=== PATIENT | female | born 1935 | race African-American/Black ===

== ENCOUNTER 2017-06-15 09:44 | Inpatient (IN) | payer MEDICAID, MEDICARE ==
[~2017-06-15] VITALS: Ht 144.8 cm; Wt 31.8 kg
[~2017-06-15 09:44] MED LIST: ALPR2TAB2 PO; ASPI-1159 PO; CEPH500T PO; SERT50TA PO; SILV20CR15 TP; SORB1SOL2 GT
[2017-06-15] MEDS ORDERED: SODIUM CHLORIDE 0.9% 1,000 ML IV ONE (09:47)
[2017-06-15 10:32] LABS: BASOPHILS % 0.6 % (0.0-2.0); EOSINOPHILS % 0.6 % (0.0-5.0); INR 1.2; LYMPHOCYTES % 17.1 % (20.0-50.0); MEAN CORPUSCULAR HEMOGLOBIN 25.5 pg (28.0-32.0); MEAN PLATELET VOLUME 6.2 fl (7.4-10.4); MONOCYTES % 5.3 % (2.0-8.0); NEUTROPHILS % 76.4 % (40.0-76.0); PLATELET 367 x1000/uL (130-400); PROTHROMBIN TIME 12.5 sec; RED BLOOD CELL COUNT 2.62 mill/uL (4.2-5.4)
[2017-06-15 10:44] LABS: CARBON DIOXIDE 27 mEq/L (21-32); CHLORIDE 108 mEq/L (98-107)
[2017-06-15 12:42] LABS: CLARITY URINE CLOUDY (CLEAR); COLOR URINE YELLOW (YELLOW); GLUCOSE URINE NEGATIVE (NEGATIVE); KETONES URINE NEGATIVE (NEGATIVE); LEUKOCYTE ESTERASE URINE TRACE (NEGATIVE); NITRITE URINE POSITIVE (NEGATIVE); OCCULT BLOOD URINE TRACE (NEGATIVE); PH URINE 5.5 (4.5-8.0); PROTEIN URINE NEGATIVE (NEGATIVE); SPECIFIC GRAVITY URINE 1.015 (1.005-1.030); UROBILINOGEN URINE 0.2 E.U./dL (0.2-1.0)
[2017-06-15] MEDS ORDERED: CEFTRIAXONE 1 G PREMIX 50 ML IV ONE (12:45)
[2017-06-15] MEDS ORDERED: ONDANSETRON HCL 4MG/2ML VIAL IV PRN (14:15)
[2017-06-15] MEDS ORDERED: LORAZEPAM 2MG/ML CPJ IV PRN (14:15)
[2017-06-15] MEDS ORDERED: ACETAMINOPHEN 650MG SUPP PR PRN (14:15)
[2017-06-15 16:45] VITALS: BP 128/68
[2017-06-15 16:52] VITALS: BP 128/68
[2017-06-15] MEDS: DEXT 5%/0.45% NACL 1000ML 1,000 ML IV SCH (17:21)
[2017-06-15] MEDS: LEVOFLOXACIN 250MG PREMIX 50 ML IV SCH (18:20)
[2017-06-15] MEDS ORDERED: LEVOFLOXACIN 500MG PREMIX 100 ML IV NR (18:30)
[2017-06-15 20:00] VITALS: BP 112/78
[2017-06-15] MEDS ORDERED: ALPRAZOLAM 0.25 MG TABLET PO NR (22:00)
[2017-06-15 22:30] VITALS: BP 130/69
[2017-06-15 22:53] VITALS: BP 122/69
[2017-06-15 23:53] VITALS: BP 118/74
[2017-06-16] VITALS (13 sets, daily range): BP systolic 118–144; BP diastolic 46–84
[2017-06-16 06:37] LABS: BASOPHILS % 0.2 % (0.0-2.0); EOSINOPHILS % 0.3 % (0.0-5.0); HEMATOCRIT. 27.6 % (36.0-48.0); LYMPHOCYTES % 12.5 % (20.0-50.0); MEAN CORPUSCULAR HEMOGLOBIN 27.3 pg (28.0-32.0); MEAN CORPUSCULAR VOLUME 81.6 fL (81.0-99.0); MEAN PLATELET VOLUME 6.5 fl (7.4-10.4); MONOCYTES % 7.6 % (2.0-8.0); NEUTROPHILS % 79.4 % (40.0-76.0); PLATELET 297 x1000/uL (130-400); RED BLOOD CELL COUNT 3.38 mill/uL (4.2-5.4); RED CELL DISTRIBUTION WIDTH 15.3 % (11.6-14.6)
[2017-06-16 07:10] LABS: CARBON DIOXIDE 22 mEq/L (21-32); CHLORIDE 110 mEq/L (98-107); HDL CHOLESTEROL 45 mg/dL (40-59); LDL CHOLESTEROL 43 mg/dL (5-100); TROPONIN I 0.16 ng/mL (0.00-0.04)
[2017-06-16 07:17] LABS: HEMOGLOBIN. 9.2 g/dL (12.0-16.0)
[2017-06-16] MEDS: DEXT 5%/0.45% NACL 1000ML 1,000 ML IV SCH (16:18)
[2017-06-16] MEDS: LEVOFLOXACIN 250MG PREMIX 50 ML IV SCH (16:19)
[2017-06-17 05:02] VITALS: BP 132/58
[2017-06-17] MEDS: ENOXAPARIN 30MG/0.3ML SYR SUBCUT SCH (05:07)
[2017-06-17 08:00] VITALS: BP 136/46
[2017-06-17] MEDS ORDERED: ENOXAPARIN 30MG/0.3ML SYR SUBCUT SCH (09:00)
[2017-06-17 10:11] LABS: HEMOGLOBIN. 6.7 g/dL (12.0-16.0)
[2017-06-17 12:00] VITALS: BP 114/37
[2017-06-17 13:27] LABS: BASOPHILS % 0.4 % (0.0-2.0); EOSINOPHILS % 0.4 % (0.0-5.0); HEMATOCRIT. 30.9 % (36.0-48.0); HEMOGLOBIN. 10.3 g/dL (12.0-16.0); LYMPHOCYTES % 13.5 % (20.0-50.0); MEAN CORPUSCULAR HEMOGLOBIN 27.3 pg (28.0-32.0); MEAN PLATELET VOLUME 6.2 fl (7.4-10.4); MONOCYTES % 6.1 % (2.0-8.0); NEUTROPHILS % 79.6 % (40.0-76.0); PLATELET 293 x1000/uL (130-400); RED BLOOD CELL COUNT 3.77 mill/uL (4.2-5.4); RED CELL DISTRIBUTION WIDTH 15.9 % (11.6-14.6)
[2017-06-17] MEDS: LEVOFLOXACIN 250MG PREMIX 50 ML IV SCH (13:42)
[2017-06-17] MEDS: LEVETIRACETAM 250 MG in SODIUM CHLORIDE 0.9% 100 ML IV SCH (14:46)
[2017-06-17 16:39] VITALS: BP 95/52
[2017-06-17 20:26] VITALS: BP 109/51
[2017-06-17] MEDS: ALPRAZOLAM 0.5 MG TABLET PO SCH (21:44)
[2017-06-17] MEDS: DEXT 5%/0.45% NACL 1000ML 1,000 ML IV SCH ×2 (21:44→21:52)
[2017-06-17 23:53] VITALS: BP 118/46
[2017-06-18] MEDS: LEVETIRACETAM 250 MG in SODIUM CHLORIDE 0.9% 100 ML IV SCH ×2 (03:24→15:10)
[2017-06-18 04:44] VITALS: BP 120/49
[2017-06-18] MEDS: ENOXAPARIN 30MG/0.3ML SYR SUBCUT SCH (05:22)
[2017-06-18 08:00] VITALS: BP 156/57
[2017-06-18 12:00] VITALS: BP 122/59
[2017-06-18] MEDS: LEVOFLOXACIN 250MG PREMIX 50 ML IV SCH (13:35)
[2017-06-18] MEDS: DEXT 5%/0.45% NACL 1000ML 1,000 ML IV SCH (13:35)
[2017-06-18 16:00] VITALS: BP 127/60
[2017-06-18 20:00] VITALS: BP 103/65
[2017-06-18] MEDS: ALPRAZOLAM 0.5 MG TABLET PO SCH (20:36)
[2017-06-19] VITALS: BP 134/62
[2017-06-19] MEDS: LEVETIRACETAM 250 MG in SODIUM CHLORIDE 0.9% 100 ML IV SCH ×2 (02:30→15:55)
[2017-06-19 04:00] VITALS: BP 131/81
[2017-06-19] MEDS: DEXT 5%/0.45% NACL 1000ML 1,000 ML IV SCH ×2 (04:12→18:25)
[2017-06-19 08:00] VITALS: BP 113/50
[2017-06-19] MEDS ORDERED: SODIUM BICARBONATE 4% (2.4MEQ) 5ML VIAL IV ONE (08:51)
[2017-06-19] MEDS ORDERED: IOHEXOL-300 100 ML BOTTLE ONE (08:51)
[2017-06-19] MEDS ORDERED: LIDOCAINE HCL 1% 20ML VIAL (Pyxis) INJ ONE (08:51)
[2017-06-19] MEDS ORDERED: HEPARIN 1,000 UNITS PREMIX 0 ML IV ONE (08:52)
[2017-06-19] MEDS: LORAZEPAM 2MG/ML CPJ IV PRN (09:16)
[2017-06-19 12:31] VITALS: BP 126/61
[2017-06-19] MEDS: LEVOFLOXACIN 250MG PREMIX 50 ML IV SCH (13:51)
[2017-06-19 16:11] VITALS: BP 104/59
[2017-06-19 20:00] VITALS: BP 128/52
[2017-06-19] MEDS: ALPRAZOLAM 0.5 MG TABLET PO SCH (23:06)
[2017-06-20] VITALS: BP 109/52
[2017-06-20] MEDS: LEVETIRACETAM 500 MG in SODIUM CHLORIDE 0.9% 100 ML IV SCH ×2 (02:48→15:02)
[2017-06-20] MEDS: DEXT 5%/0.45% NACL 1000ML 1,000 ML IV SCH ×2 (02:49→17:44)
[2017-06-20] MEDS: ENOXAPARIN 30MG/0.3ML SYR SUBCUT SCH (02:54)
[2017-06-20 04:00] VITALS: BP 114/54
[2017-06-20 08:00] VITALS: BP 109/63
[2017-06-20] MEDS ORDERED: ALPRAZOLAM 0.5 MG TABLET PO SCH (09:00)
[2017-06-20] MEDS: ALPRAZOLAM 0.5 MG TABLET PO SCH ×2 (09:19→17:45)
[2017-06-20 12:00] VITALS: BP 97/51
[2017-06-20] MEDS: LEVOFLOXACIN 250MG PREMIX 50 ML IV SCH (14:13)
[2017-06-20 14:42] VITALS: BP 97/51
[2017-06-20 20:00] VITALS: BP 115/78
[2017-06-21] MEDS: LEVETIRACETAM 500 MG in SODIUM CHLORIDE 0.9% 100 ML IV SCH (03:00)
[2017-06-21 04:00] VITALS: BP 120/68
[2017-06-21] MEDS: ENOXAPARIN 30MG/0.3ML SYR SUBCUT SCH (04:00)
[2017-06-21] MEDS: DEXT 5%/0.45% NACL 1000ML 1,000 ML IV SCH ×2 (05:20→18:40)
[2017-06-21 08:00] VITALS: BP 137/59
[2017-06-21] MEDS: LEVETIRACETAM 500MG TABLET PO SCH ×2 (09:56→20:51)
[2017-06-21] MEDS: ALPRAZOLAM 0.5 MG TABLET PO SCH ×2 (09:56→17:28)
[2017-06-21] MEDS: LEVOFLOXACIN 250MG TABLET PO SCH (10:00)
[2017-06-21 12:00] VITALS: BP 99/47
[2017-06-21 16:00] VITALS: BP 99/54
[2017-06-21 20:00] VITALS: BP 112/59
[2017-06-21] MEDS: LORAZEPAM 2MG/ML CPJ IV PRN (22:08)
[2017-06-22] VITALS (7 sets, daily range): BP systolic 104–129; BP diastolic 56–86
[2017-06-22] MEDS: ENOXAPARIN 30MG/0.3ML SYR SUBCUT SCH (03:54)
[2017-06-22 05:25] LABS: HEMATOCRIT 31.5 % (36.0-48.0); HEMOGLOBIN 10.4 g/dL (12.0-16.0); MEAN CORPUSCULAR HEMOGLOBIN 27.4 pg (28.0-32.0); MEAN CORPUSCULAR VOLUME 83.4 fL (81.0-99.0); PLATELET 242 x1000/uL (130-400); RED BLOOD CELL COUNT 3.78 mill/uL (4.2-5.4); RED CELL DISTRIBUTION WIDTH 16.5 % (11.6-14.6)
[2017-06-22] MEDS: DEXT 5%/0.45% NACL 1000ML 1,000 ML IV SCH (08:00)
[2017-06-22] MEDS: LEVETIRACETAM 500MG TABLET PO SCH ×2 (08:23→21:09)
[2017-06-22] MEDS: ALPRAZOLAM 0.5 MG TABLET PO SCH ×3 (08:24→21:09)
[2017-06-22] MEDS: LEVOFLOXACIN 250MG TABLET PO SCH (12:35)
== END 2017-06-22 22:45 | disposition home or self-care (01) | DRG 871 ==
LOC: ER 10:01 → 6WST 13:15 → CANRESERV 14:00 → ENRESERV 14:00
PROVIDERS: ADMIT Internal Medicine; ATTEND Internal Medicine
PROC: 30233N1 Transfusion of Nonautologous Red Blood Cells into Peripheral Vein, Percutaneous Approach (ICD-10-PCS; principal; 2017-06-22)
DX: A41.9 Sepsis, unspecified organism (principal); G93.40 Encephalopathy, unspecified; E43 Unspecified severe protein-calorie malnutrition; L89.159 Pressure ulcer of sacral region, unspecified stage; I82.412 Acute embolism and thrombosis of left femoral vein; I95.9 Hypotension, unspecified; F03.90 Unspecified dementia, unspecified severity, without behavioral disturbance, psychotic disturbance, mood disturbance, and anxiety; J44.9 Chronic obstructive pulmonary disease, unspecified; N30.00 Acute cystitis without hematuria; I82.432 Acute embolism and thrombosis of left popliteal vein; R47.01 Aphasia; Z68.1 Body mass index [BMI] 19.9 or less, adult; D64.9 Anemia, unspecified; Z66 Do not resuscitate; R91.8 Other nonspecific abnormal finding of lung field; I10 Essential (primary) hypertension; R62.7 Adult failure to thrive; Z74.01 Bed confinement status
CPT/HCPCS: 36415; 51702; 70450; 71010; 80053; 80061; 81001; 83605; 84484; 85025; 85027; 85610; 86850; 86900; 86920; 87040; 92610; 93005; 93970; 96365; 96366; 99291; A6261; C1893; J0696; J1644; J1650; J1953; J1956; J2060; J3490; J7030; J7040; J7050; P9016; Q9967; A4315

== ENCOUNTER 2017-06-24 16:37 | Emergency (ER) | payer MEDICARE ==
[~2017-06-24] VITALS: Ht 152.4 cm; Wt 40.8 kg
[2017-06-24 17:54] LABS: CLARITY URINE CLEAR (CLEAR); COLOR URINE YELLOW (YELLOW); GLUCOSE URINE NEGATIVE (NEGATIVE); KETONES URINE NEGATIVE (NEGATIVE); LEUKOCYTE ESTERASE URINE NEGATIVE (NEGATIVE); NITRITE URINE NEGATIVE (NEGATIVE); OCCULT BLOOD URINE NEGATIVE (NEGATIVE); PH URINE 5.5 (4.5-8.0); PROTEIN URINE NEGATIVE (NEGATIVE); SPECIFIC GRAVITY URINE 1.013 (1.005-1.030); UROBILINOGEN URINE 0.2 E.U./dL (0.2-1.0)
[2017-06-24 18:35] LABS: BASOPHILS % 0.3 % (0.0-2.0); EOSINOPHILS % 0.1 % (0.0-5.0); HEMATOCRIT. 34.3 % (36.0-48.0); HEMOGLOBIN. 11.1 g/dL (12.0-16.0); LYMPHOCYTES % 20.3 % (20.0-50.0); MEAN CORPUSCULAR HEMOGLOBIN 26.9 pg (28.0-32.0); MEAN CORPUSCULAR VOLUME 83.5 fL (81.0-99.0); MEAN PLATELET VOLUME 6.6 fl (7.4-10.4); MONOCYTES % 7.4 % (2.0-8.0); NEUTROPHILS % 71.9 % (40.0-76.0); PLATELET 164 x1000/uL (130-400); RED BLOOD CELL COUNT 4.11 mill/uL (4.2-5.4); RED CELL DISTRIBUTION WIDTH 16.7 % (11.6-14.6)
[2017-06-24 18:40] LABS: CHLORIDE 110 mEq/L (98-107)
[2017-06-24 18:44] LABS: CARBON DIOXIDE 24 mEq/L (21-32)
[2017-06-24 21:05] VITALS: BP 108/76
== END 2017-06-24 21:28 | disposition home or self-care (01) ==
LOC: ER 17:32
DX: G40.909 Epilepsy, unspecified, not intractable, without status epilepticus (principal); R41.82 Altered mental status, unspecified; R47.01 Aphasia; L89.154 Pressure ulcer of sacral region, stage 4; F03.90 Unspecified dementia, unspecified severity, without behavioral disturbance, psychotic disturbance, mood disturbance, and anxiety; I10 Essential (primary) hypertension; M62.422 Contracture of muscle, left upper arm; M62.421 Contracture of muscle, right upper arm; M62.462 Contracture of muscle, left lower leg; M62.461 Contracture of muscle, right lower leg
CPT/HCPCS: 36415; 51702; 70450; 80048; 81003; 85025; 99285; A4315